=== PATIENT | female | born 1965 | race Caucasian/White ===

== ENCOUNTER 2020-02-10 19:08 | Emergency (ER) | payer OTHER, SELFPAY ==
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
[2020-02-10 19:16] VITALS: BP 136/82; PULSE 100; RESP 18; TEMP 36.7; O2SAT 100
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
[2020-02-10] MEDS: KETOROLAC (*BKC) 60 MG/2 ML VIAL IM (19:41)
[2020-02-10 21:07] VITALS: BP 128/97; PULSE 97; RESP 18; O2SAT 97
== END 2020-02-10 21:09 | disposition home or self-care (01) ==
PROVIDERS: Emergency Provider Emergency Medicine
DX: M54.2 Cervicalgia (principal); M54.42 Lumbago with sciatica, left side; F17.200 Nicotine dependence, unspecified, uncomplicated; M47.812 Spondylosis without myelopathy or radiculopathy, cervical region; M19.012 Primary osteoarthritis, left shoulder; V49.40XA Driver injured in collision with unspecified motor vehicles in traffic accident, initial encounter
CPT/HCPCS: 72125; 72128; 72131; 73030; 73502; 73610; 96372; 99284; J1885

== ENCOUNTER 2024-10-18 11:10 | Outpatient (CLI) | payer OTHER, SELFPAY ==
--- NOTE | ~2024-10-18 | CT_ITS ---
CT Scan of the Chest without Contrast: Clinical Indication: Lung cancer screening, nicotine dependence Technique: Contiguous sections were acquired throughout the chest without intravenous contrast. Dose reduction technique was used on this scan by utilizing automated exposure control and iterative recon struction technique. The dose-length product (DLP) was 104.61 mGy-cm. Findings: There is no evidence of any significant mediastinal, hilar or axillary lymphadenopathy. Coronary lashon ry calcifications are present. There is no evidence of pleural or pericardial effusion. 2 mm right apical pulmonary nodule present. Images through the upper abdomen reveal moderate hiatal hernia. Is extensive postoperative change of the lumbar spine. Impression: Lung RADS 2: Benign appearance. 12 month follow-up screening CT advised. Reviewed, dictated and finalized at [facility]. [employer] Impression: Lung RADS 2: Benign appearance. 12 month follow-up screening CT advised.
== END 2024-10-18 11:11 | disposition home or self-care (01) ==
PROVIDERS: PCP Physician Assistant; Visit Provider Physician Assistant
DX: Z12.2 Encounter for screening for malignant neoplasm of respiratory organs (principal); F17.210 Nicotine dependence, cigarettes, uncomplicated
CPT/HCPCS: 71271

== ENCOUNTER 2025-01-17 13:00 | Outpatient (RCR) | payer OTHER, SELFPAY ==
--- NOTE | 2024-11-30 10:47 | OPREHPOC ---
Outpatient Therapy Plan of Care This is a Multidisciplinary Plan of Care that may contain components documented by all disciplines (PT, OT, and ST.) PT Problem 1 PT Problem #1 Knowledge Deficit PT Goal 1 Goal / Goal Update [place] with HEP Target Visit 4 PT Goal 2 Goal / Goal Update Report no pain greater than 310 for 2 consecutive weeks Target Visit 8 PT Problem 2 PT Problem #2 Impaired Range of Motion PT Goal 1 Goal / Goal Update 1. Improve jhonny hip abduction ROM to 40 degrees to improve hip mobility to reduce lumbar strain with ADLs 2. Demonstrate HS 90/90 ROM improvement to -20 degrees to reduce pelvic pull with ADLs Target Visit 8 PT Problem 3 PT Problem #3 Impaired Strength PT Goal 1 Goal / Goal Update Improve jhonny periscapular strength to 4/5 to0 improve shoulder and thoracic posturing to reduce kyphotic stress Target Visit 8
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
--- NOTE | 2024-12-13 13:36 | PCPTNOTE ---
Called and canceled, ill. AKS
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
--- NOTE | 2025-01-17 13:54 | OPREHPOC ---
Outpatient Therapy Plan of Care This is a Multidisciplinary Plan of Care that may contain components documented by all disciplines (PT, OT, and ST.) PT Problem 1 PT Problem #1 Knowledge Deficit PT Goal 1 Goal / Goal Update [place] with HEP Target Visit 4 Progress Met PT Goal 2 Goal / Goal Update Report no pain greater than 3/10 for 2 consecutive weeks Target Visit 8 Progress Not Met PT Problem 2 PT Problem #2 Impaired Range of Motion PT Goal 1 Goal / Goal Update 1. Improve jhonny hip abduction ROM to 40 degrees to improve hip mobility to reduce lumbar strain with ADLs 2. Demonstrate HS 90/90 ROM improvement to -20 degrees to reduce pelvic pull with ADLs Target Visit 8 Progress Met PT Problem 3 PT Problem #3 Impaired Strength PT Goal 1 Goal / Goal Update Improve jhonny periscapular strength to 4/5 to0 improve shoulder and thoracic posturing to reduce kyphotic stress Target Visit 8 Progress Met
--- NOTE | 2025-01-17 13:54 | PTOPDC ---
Assessment and note entered by Collin Alva, PT Evaluation Information Assessment Status Discharge Diagnosis Chronic low back pain ICD-10 Condition Codes (PT) Pain in Thoracic Spine M54.6 Subjective Information Reports that she continues to have some pain in her neck. Her back and legs are doing significantly better at this point. When she does have back pain, she does not feel limited by it. She is sleeping better overall and has changed some of her positioning in bed to help. She is still slightly limited in her ambulatory capacity and distance. She is no longer a constant 10 like she used to be. Reported Pain Level Pain Score 6: Self Report Assessment PT Clinical Summary Patient met majority of goals for therapy at this time with the exception of pain goals. Still limited at this time by pain and discomfort. She is independent with HEP and suitable for D/C to HEP. Plan of Care PT Services Indicated Yes
== END 2025-01-17 15:03 | disposition home or self-care (01) ==
LOC: ANHPT 13:00
PROVIDERS: PCP Physician Assistant; Visit Provider Physician Assistant
DX: G89.29 Other chronic pain (principal)
CPT/HCPCS: 97110; 97140; 97161